=== PATIENT | male | born 1975 | race Caucasian/White ===

== ENCOUNTER 2016-12-22 00:29 | Emergency (ER) | payer OTHER ==
[~2016-12-22] VITALS: Ht 170.2 cm; Wt 77.0 kg
[2016-12-22 05:38] VITALS: BP 126/77
== END 2016-12-22 06:40 | disposition home or self-care (01) ==
LOC: ER 00:29
DX: S60.311A Abrasion of right thumb, initial encounter (principal); V43.52XA Car driver injured in collision with other type car in traffic accident, initial encounter; Y93.89 Activity, other specified; Y92.488 Other paved roadways as the place of occurrence of the external cause
CPT/HCPCS: 73130; 99284